=== PATIENT | male | born 1950 | race Caucasian/White ===

== ENCOUNTER 2019-01-14 19:06 | Emergency (ER) | payer BC, MEDICARE ==
[2019-01-14] MEDS ORDERED: Bacitracin Oint 1 GM U/D Packet TOP ONE (20:18)
[2019-01-14] MEDS ORDERED: Bacitracin Oint 1 GM U/D Packet ONE (20:20)
--- NOTE | 2019-01-14 20:26 | EDM.PDOC ---
ED HPI GENERAL MEDICAL PROBLEM - General Chief Complaint: Upper Extremity Injury/Pain Stated Complaint: CUT LEFT FINGER Time Seen by Provider: 01/14/19 20:20 Source of Information: Reports: Patient History Limitations: Reports: No Limitations - History of Present Illness INITIAL COMMENTS - FREE TEXT/NARRATIVE: pt put a screw into the li aspect of the left index finger. He developed alot of persistent bleeding and he was concerned and did come in. He did not think he hit the bone. Onset: Today, Sudden Duration: Hour(s): Location: Reports: Upper Extremity, Left Associated Symptoms: Reports: No Other Symptoms - Related Data Allergies Allergy/AdvReac Type Severity Reaction Status Date / Time cefazolin [From [facility]] Allergy Anaphylactic Verified 01/14/19 19:24 Shock Home Meds: Home Meds Clopidogrel [Plavix] 1 tab PO DAILY 01/14/19 [History] Lisinopril [Zestril] 5 mg PO DAILY 01/14/19 [History] Triamterene/Hydrochlorothiazid [Triamterene-HCTZ 37.5-25 MG] 1 each PO DAILY 01/27 [History] Warfarin [Coumadin] 5 - 7.5 mg PO DAILY 01/14/19 [History] atorvaSTATin [Lipitor] 80 mg PO BEDTIME 01/14/19 [History] Past Medical History Cardiovascular History: Reports: Afib, CAD, High Cholesterol, Hypertension, Pacemaker Respiratory History: Reports: Other (See Below) Other Respiratory History: emphysema Musculoskeletal History: Reports: Arthritis, Fracture Neurological History: Reports: CVA, TIA Hematologic History: Reports: Anticoagulation Therapy - Past Surgical History HEENT Surgical History: Reports: Adenoidectomy, Cataract Surgery, Tonsillectomy , Other (See Below) Other HEENT Surgeries/Procedures: ear surgery Cardiovascular Surgical History: Reports: Cardiac Ablation, Pacer, Other (See Below) Other Cardiovascular Surgeries/Procedures: pericardium removed Respiratory Surgical History: Reports: Pleurodesis GI Surgical History: Reports: Appendectomy, Colonoscopy, EGD Musculoskeletal Surgical History: Reports: Arthroscopic Knee, Knee Replacement Social & Family History - Tobacco Use Smoking Status *Q: Never Smoker - Caffeine Use Caffeine Use: Reports: Coffee - Recreational Drug Use Recreational Drug Use: No Review of Systems - Review of Systems Review Of Systems: See Below Constitutional: Reports: No Symptoms Eyes: Reports: No Symptoms Ears: Reports: No Symptoms Nose: Reports: No Symptoms Mouth/Throat: Reports: No Symptoms Respiratory: Reports: No Symptoms Cardiovascular: Reports: No Symptoms GI/Abdominal: Reports: No Symptoms Genitourinary: Reports: No Symptoms Musculoskeletal: Reports: Other (pt hit the left index finger on the li aspect with a screw. He believes this went in about 1/4 inch. He is current with his tetanus. It did bleed heavily at first. With pressure that has gotten better. ) Skin: Reports: No Symptoms Neurological: Reports: No Symptoms Psychiatric: Reports: No Symptoms ED EXAM, GENERAL - Physical Exam Exam: See Below Free Text/Narrative:: pt arrived with a punture wound to the left index finger li aspect. Exam Limited By: No Limitations General Appearance: Alert, Anxious, Mild Distress Extremities: Other (pt has a puncture wound to the left index finger and this was bleeding heavily. This has now slowed down. A xray was obtained which did not involve any bone involvement,. Pt has full range of motion of the finger. He is current with his tetanus. ) Neurological: Alert, Oriented Course - Vital Signs Last Recorded V/S: Last Vital Signs Temp 36.7 C 01/14/19 19:37 Pulse 68 01/14/19 19:37 Resp 18 01/14/19 19:37 BP 130/68 01/14/19 19:37 Pulse Ox 92 L 01/14/19 19:37 - Orders/Labs/Meds Meds: Medications Discontinued Medications Generic Name Dose Route Start Last Admin Trade Name Karen PRN Reason Stop Dose Admin Bacitracin 1 dose 01/14/19 20:18 01/14/19 20:25 Bacitracin Oint 1 Gm TOP 01/14/19 20:19 1 dose ONETIME ONE Administration Bacitracin Confirm 01/14/19 20:20 01/14/19 20:25 Bacitracin Oint 1 Gm Administered 01/14/19 20:21 Not Given Dose 1 dose .ROUTE .STK-MED ONE Clindamycin HCl 300 mg 01/14/19 20:30 Cleocin PO 01/14/19 20:31 ONETIME ONE - Re-Assessments/Exams Free Text/Narrative Re-Assessment/Exam: 01/14/19 20:27 xrays were neg. It was soaked and cleaned well. It was dressed with bacatracin. This is a puncture wound and should be left open. He will be covered with antibiotic. He is allergic to cefazollin. Departure - Departure Time of Disposition: 20:28 Disposition: Home, Self-Care 01 Condition: Fair Clinical Impression: Puncture wound - Discharge Information Referrals: PCP,None [Primary Care Provider] - Forms: ED Department Discharge Care Plan Goals: clindomycin 300mg bid for 5 days, leave pressure dressing on until tomorrow pm. Then start soaking bid in a soapy solution, rtc if problems. hold coumadin tomorrow. Pt should have a INr on Friday. resume coumadin on sat.
--- NOTE | 2019-01-14 20:27 | CRLCR ---
INDICATION: Puncture wound index finger left hand TECHNIQUE: Reviews 2nd digit left hand COMPARISON: None FINDINGS: Bones: Alignment is normal. No fractures or bone lesions. Joint spaces: Unremarkable. Soft tissues: Unremarkable. IMPRESSION: Negative. Dictated by Yandel Ellison MD @ 01/14/2019 8:26:34 PM Dictated by: Yandel Ellison MD @ 01/14/2019 20:26:39 (Electronically Signed)
[2019-01-14] MEDS ORDERED: Clindamycin HCl 150 MG Cap PO ONE (20:30)
== END 2019-01-14 21:50 | disposition home or self-care (01) ==
LOC: JP.ED 19:06
DX: S61.231A Puncture wound without foreign body of left index finger without damage to nail, initial encounter (principal); I48.91 Unspecified atrial fibrillation; I25.10 Atherosclerotic heart disease of native coronary artery without angina pectoris; I10 Essential (primary) hypertension; E78.00 Pure hypercholesterolemia, unspecified; Z88.8 Allergy status to other drugs, medicaments and biological substances; Z79.899 Other long term (current) drug therapy; Z79.01 Long term (current) use of anticoagulants; Z86.73 Personal history of transient ischemic attack (TIA), and cerebral infarction without residual deficits; W45.8XXA Other foreign body or object entering through skin, initial encounter
CPT/HCPCS: 73140; 99283; A9270